=== PATIENT | female | born 1995 | race African-American/Black ===

== ENCOUNTER 2016-09-24 21:21 | Observation (INO) | payer MEDICAID ==
[~2016-09-24] VITALS: Ht 170.2 cm; Wt 60.8 kg
[2016-09-24] MEDS ORDERED: PREN-88 PO (22:33)
[2016-09-24 23:29] LABS: CLARITY URINE CLEAR (CLEAR); COLOR URINE YELLOW (YELLOW); GLUCOSE URINE NEGATIVE (NEGATIVE); KETONES URINE NEGATIVE (NEGATIVE); LEUKOCYTE ESTERASE URINE NEGATIVE (NEGATIVE); NITRITE URINE NEGATIVE (NEGATIVE); OCCULT BLOOD URINE NEGATIVE (NEGATIVE); PH URINE 6.5 (4.5-8.0); PROTEIN URINE NEGATIVE (NEGATIVE); SPECIFIC GRAVITY URINE 1.006 (1.005-1.030); UROBILINOGEN URINE 0.2 E.U./dL (0.2-1.0)
[2016-09-25] MEDS ORDERED: LACTATED RINGERS 1,000 ML IV SCH
[2016-09-25] MEDS ORDERED: HYDROMORPHONE HCL/PF 2MG/ML CPJ IV ONE (00:15)
[2016-09-25 00:41] VITALS: BP 133/76
== END 2016-09-25 01:38 | disposition home or self-care (01) ==
LOC: L&D 21:21
PROVIDERS: ADMIT Specialist; ATTEND Specialist
DX: O26.892 Other specified pregnancy related conditions, second trimester (principal); M54.5 Low back pain; Z3A.25 25 weeks gestation of pregnancy
CPT/HCPCS: 81003; 96361; 96374; 99281; G0378; J1170; J7120; 96360

== ENCOUNTER 2016-09-29 00:46 | Observation (INO) | payer MEDICAID ==
[~2016-09-29] VITALS: Ht 172.7 cm; Wt 65.8 kg
[~2016-09-29 00:46] MED LIST: PREN-88 PO
[2016-09-29] MEDS ORDERED: ACETAMINOPHEN 500MG TABLET PO ONE (01:45)
[2016-09-29] MEDS ORDERED: LACTATED RINGERS 1,000 ML IV SCH (01:45)
[2016-09-29 01:57] LABS: CLARITY URINE CLEAR (CLEAR); COLOR URINE YELLOW (YELLOW); GLUCOSE URINE NEGATIVE (NEGATIVE); KETONES URINE NEGATIVE (NEGATIVE); LEUKOCYTE ESTERASE URINE NEGATIVE (NEGATIVE); NITRITE URINE NEGATIVE (NEGATIVE); OCCULT BLOOD URINE NEGATIVE (NEGATIVE); PH URINE 6.5 (4.5-8.0); PROTEIN URINE NEGATIVE (NEGATIVE); SPECIFIC GRAVITY URINE 1.015 (1.005-1.030)
== END 2016-09-29 03:40 | disposition home or self-care (01) ==
LOC: L&D 00:46
PROVIDERS: ADMIT Specialist; ATTEND Specialist
DX: O26.892 Other specified pregnancy related conditions, second trimester (principal); R10.30 Lower abdominal pain, unspecified; R51 Headache; O21.2 Late vomiting of pregnancy; Z3A.26 26 weeks gestation of pregnancy
CPT/HCPCS: 81003; 96360; 96361; 99281; G0378; J7120

== ENCOUNTER 2016-10-17 00:35 | Observation (INO) | payer MEDICAID ==
[~2016-10-17] VITALS: Ht 172.7 cm; Wt 66.2 kg
[2016-10-17] MEDS ORDERED: ONDANSETRON HCL 4MG/2ML VIAL IV ONE (01:15)
[2016-10-17] MEDS ORDERED: LACTATED RINGERS 1,000 ML IV SCH (01:15)
[2016-10-17] MEDS ORDERED: ACETAMINOPHEN 500MG TABLET PO ONE (01:15)
[2016-10-17 02:00] LABS: BASOPHILS % 0.6 % (0.0-2.0); EOSINOPHILS % 0.5 % (0.0-5.0); HEMATOCRIT. 24.9 % (36.0-48.0); HEMOGLOBIN. 8.1 g/dL (12.0-16.0); LYMPHOCYTES % 17.5 % (20.0-50.0); MEAN CORPUSCULAR HEMOGLOBIN 21.8 pg (28.0-32.0); MEAN CORPUSCULAR VOLUME 67.2 fL (81.0-99.0); MEAN PLATELET VOLUME 8.3 fl (7.4-10.4); MONOCYTES % 8.8 % (2.0-8.0); NEUTROPHILS % 72.6 % (40.0-76.0); PLATELET 264 x1000/uL (130-400); RED BLOOD CELL COUNT 3.71 mill/uL (4.2-5.4); RED CELL DISTRIBUTION WIDTH 25.4 % (11.6-14.6)
[2016-10-17 02:27] LABS: CARBON DIOXIDE 26 mEq/L (21-32); CHLORIDE 107 mEq/L (98-107)
[2016-10-17] MEDS ORDERED: DEXT 5%/0.45% NACL KCL 40MEQ/L 1,000 ML IV ONE (03:30)
[2016-10-17] MEDS ORDERED: ACETAMINOPHEN 500MG TABLET PO NR (09:15)
[2016-10-17 11:14] LABS: PLATELET ESTIMATE NORMAL
== END 2016-10-17 13:08 | disposition home or self-care (01) ==
LOC: L&D 00:35
PROVIDERS: ADMIT Obstetrics & Gynecology; ATTEND Obstetrics & Gynecology
DX: O26.899 Other specified pregnancy related conditions, unspecified trimester (principal); R51 Headache; Z3A.00 Weeks of gestation of pregnancy not specified
CPT/HCPCS: 36415; 80053; 84132; 85025; 96360; 96361; G0378; J2405; J7120

== ENCOUNTER 2016-10-21 00:39 | Observation (INO) | payer MEDICAID | END 2016-10-21 01:55 | disposition home or self-care (01) | LOC: L&D 00:39 | PROVIDERS: ADMIT Obstetrics & Gynecology; ATTEND Obstetrics & Gynecology | DX: O26.893 Other specified pregnancy related conditions, third trimester (principal); R10.30 Lower abdominal pain, unspecified; R51 Headache; R10.2 Pelvic and perineal pain; O62.9 Abnormality of forces of labor, unspecified; Z3A.29 29 weeks gestation of pregnancy | CPT/HCPCS: 99281; G0378 ==